=== PATIENT | female | born 1965 | race Caucasian/White ===

== ENCOUNTER 2018-07-28 23:10 | Emergency (ER) | payer SELFPAY, OTHER | END 2018-07-29 00:51 | disposition left against medical advice (07) | LOC: E/R 23:10 | DX: Z53.21 Procedure and treatment not carried out due to patient leaving prior to being seen by health care provider (principal) ==

== ENCOUNTER 2018-10-20 05:49 | Emergency (ER) | payer OTHER ==
[2018-10-20 07:08] LABS: ADD MAN DIFF? NO
[2018-10-20 07:10] LABS: WHITE BLOOD COUNT 16.2 10^3/ul (4.8-10.8)
[2018-10-20 07:10] LABS: ABNORMAL IP MESSAGE 1; BASOPHILS % 0.2 % (0.0-2.0); EOSINOPHILS % 0.1 % (0.0-7.0); HEMATOCRIT 40.3 % (37.0-47.0); HEMOGLOBIN 13.2 g/dl (12.0-16.0); LYMPHOCYTES # 0.5 10^3/ul (0.8-2.9); LYMPHOCYTES % 2.8 % (15.0-51.0); MEAN CORPUSCULAR HEMOGLOBIN 27.5 pg (29.0-33.0); MEAN CORPUSCULAR HGB CONC 32.8 g/dl (32.0-37.0); MEAN PLATELET VOLUME 10.3 fl (7.4-10.4); MONOCYTE # 0.2 10^3/ul (0.3-0.9); MONOCYTES % 1.2 % (0.0-11.0); NEUTROPHIL # 15.4 10^3/ul (1.6-7.5); NEUTROPHILS % 95.1 % (39.0-77.0); PLATELET COUNT 253 10^3/UL (140-415)
[2018-10-20 07:13] LABS: POSITIVE DIFF @See below
[2018-10-20] MEDS: ONDANSETRON 4 MG INJ IV ×2 (07:16→10:41)
[2018-10-20] MEDS: DICYCLOMINE 10 MG CAP PO ×2 (07:16→10:41)
[2018-10-20] MEDS: morphine 4 MG/ML VIAL IV (07:16)
[2018-10-20] MEDS: SOD CHLORIDE 0.9% 1,000 ML IV ×2 (07:17→10:41)
[2018-10-20 07:38] LABS: INR 0.91; PARTIAL THROMBOPLASTIN TIME 27.3 Sec (23.0-35.0); PROTIME 12.4 Sec (11.9-14.9)
[2018-10-20] MEDS: KETOROLAC 30 MG INJ IV (07:43)
[2018-10-20 07:54] LABS: ALANINE AMINOTRANSFERASE 61 IU/L (13-69); ALBUMIN 4.4 g/dl (3.3-4.9); ALBUMIN/GLOBULIN RATIO 1.69; ALKALINE PHOSPHATASE 96 IU/L (42-121); AMYLASE 97 U/L (11-123); ANION GAP 12 (5-13); ASPARTATE AMINO TRANSFERASE 37 IU/L (15-46); BLOOD UREA NITROGEN 15 mg/dl (7-20); CALCIUM 9.5 mg/dl (8.4-10.2); CARBON DIOXIDE 22 mmol/L (21-31); CHLORIDE 109 mmol/L (97-110); Estimated GFR > 60 mL/min (>60); GLUCOSE 118 mg/dl (70-220); LIPASE 68 U/L (23-300); POTASSIUM 3.9 mmol/L (3.5-5.1); SODIUM 143 mmol/L (135-144)
[2018-10-20 08:03] LABS: TROPONIN-I < 0.012 ng/ml (0.000-0.120)
== END 2018-10-20 11:52 | disposition home or self-care (01) ==
LOC: E/R 05:49
DX: R11.2 Nausea with vomiting, unspecified (principal); R19.7 Diarrhea, unspecified; Z79.82 Long term (current) use of aspirin
CPT/HCPCS: 36415; 80053; 82150; 83690; 84484; 85025; 85610; 85730; 93005; 96374; 96375; 96376; 99284-25